=== PATIENT | male | born 1935 | race Caucasian/White ===

== ENCOUNTER 2019-05-29 20:16 | Emergency (ER) | payer OTHER ==
[~2019-05-29] VITALS: Ht 167.6 cm; Wt 60.8 kg
[2019-05-29] MEDS ORDERED: FENTANYL PF 100MCG/2ML AMPUL IV ONE ×3 (20:30→23:30)
[2019-05-29] MEDS ORDERED: ONDANSETRON HCL/PF - ER 4 MG/2 ML VIAL IV ONE (20:30)
--- NOTE | 2019-05-29 20:30 | NUR ---
[facility] C/O ABDOMINAL PAIN X FEW HRS. DENIES N/V. 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
[2019-05-29] MEDS ORDERED: FENTANYL PF 100MCG/2ML AMPUL ONE ×3 (20:33→23:15)
[2019-05-29] MEDS ORDERED: ONDANSETRON HCL/PF 4 MG/2 ML VIAL ONE (20:33)
--- NOTE | 2019-05-29 20:34 | NUR ---
PICKED UP FOR CT
[2019-05-29 20:49] LABS: BASOPHILS % (AUTO) 0.4 % (0.0-2.0); EOSINOPHILS % (AUTO) 0.8 % (0.0-6.0); HEMATOCRIT 32 % (39-51); HEMOGLOBIN 9.9 g/dL (13.5-17.5); LYMPHOCYTES # (AUTO) 0.4 /CMM (0.8-4.8); LYMPHOCYTES % (AUTO) 4.6 % (20.0-44.0); MEAN CORPUSCULAR HGB CONC 31 g/dl (31.0-36.0); MEAN CORPUSCULAR VOLUME 75 fL (80-96); MONOCYTES # (AUTO) 0.5 /CMM (0.1-1.30); MONOCYTES % (AUTO) 6.6 % (2.0-12.0); NEUTROPHILS # (AUTO) 7.2 /CMM (1.8-8.9); NEUTROPHILS % (AUTO) 87.6 % (43.0-81.0); PLATELET COUNT (AUTO) 193 /CMM (150-450); RED BLOOD CELL COUNT(AUTO) 4.23 MIL/uL (4.5-6.0); WHITE BLOOD COUNT (AUTO) 8.2 K/uL (4.3-11.0)
[2019-05-29 20:59] LABS: CALCIUM, SERUM 9.2 mg/dL (8.5-10.1); CARBON DIOXIDE 31 mmol/L (21-32); CHLORIDE 105 mmol/L (98-107); CREATININE 2.5 mg/dL (0.6-1.3); GLUCOSE 97 mg/dL (74-106); POTASSIUM 3.7 mmol/L (3.5-5.1); SODIUM SERUM 145 mmol/L (136-145); UREA NITROGEN, BLOOD 56 mg/dL (7-18)
[2019-05-29 21:04] LABS: ALANINE AMINOTRANSFERASE 20 U/L (12-78); ALKALINE PHOSPHATASE 96 U/L (46-116); ASPARTATE AMINOTRANSFERASE 17 U/L (15-37); BILIRUBIN,DIRECT 0.3 mg/dL (0.0-0.2); BILIRUBIN,TOTAL 0.8 mg/dL (0.2-1.0); LIPASE 358 U/L (73-393); TOTAL PROTEIN, SERUM 7.5 g/dL (6.4-8.2)
[2019-05-29 21:10] LABS: ALBUMIN 3.4 g/dL (3.4-5.0)
--- NOTE | 2019-05-29 21:39 | NUR ---
CALLED [facility] TO INITIATE TRANSFER. AWAITING TO DR PETERS
[2019-05-29] MEDS ORDERED: MORPHINE SULFATE INJ 4 MG/ML DISP.SYRIN ONE (23:43)
[2019-05-30] MEDS ORDERED: MORPHINE SULFATE INJ 2 MG/ML DISP.SYRIN IV ONE
--- NOTE | 2019-05-30 02:40 | NUR ---
Mac hernández in ED - 05/30/19 at 0245 by JAYLA TRANSFER INFO RECEIVED FROM [facility]. ACCEPTING [facility] # 2012-A PHONE # FOR REPORT [facility] ETA [phone]
--- NOTE | 2019-05-30 02:40 | NUR ---
TRANSFER INFO RECEIVED FROM [facility]. PT WILL BE GOING TO [facility] ACCEPTING [facility] # 8449-A PHONE # FOR REPORT [facility] ETA [phone]
--- NOTE | 2019-05-30 02:47 | NUR ---
, maribell [phone]
--- NOTE | 2019-05-30 03:07 | NUR ---
report given to ramon and his charge nurse at [facility].
--- NOTE | 2019-05-30 03:09 | NUR ---
called filemon and made him aware of the transpo
--- NOTE | 2019-05-30 03:44 | NUR ---
pt was picked up by [facility]. report given to IVANA Schaffer. pt stable w/ stable VS. no c/o pain or discomfort . all belongings picked up by .
[2019-05-30 03:47] VITALS: BP 113/80
== END 2019-05-30 03:49 | disposition short-term general hospital (02) ==
LOC: ER 20:17
DX: J90 Pleural effusion, not elsewhere classified (principal); I71.4 Abdominal aortic aneurysm, without rupture; I12.9 Hypertensive chronic kidney disease with stage 1 through stage 4 chronic kidney disease, or unspecified chronic kidney disease; N18.9 Chronic kidney disease, unspecified; D63.1 Anemia in chronic kidney disease; I48.91 Unspecified atrial fibrillation; Z98.890 Other specified postprocedural states; Z60.2 Problems related to living alone; Z85.850 Personal history of malignant neoplasm of thyroid
CPT/HCPCS: 36415; 71045; 74176; 80048; 80076; 83690; 84484; 85025; 85730; 96374; 96375 ×2; 96376; 99285; J2270; J2405; J3010 ×3

== ENCOUNTER 2019-07-04 11:39 | Emergency (ER) | payer OTHER ==
[~2019-07-04] VITALS: Ht 167.6 cm; Wt 53.5 kg
--- NOTE | 2019-07-04 11:40 | NUR ---
[id number] HOME C/O ABDOMINAL PAIN X 4 HOURS. 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 TO ER BED 5, HOOKED TO SWATCH CUTTER, CHANGED TO HOSP GOWN, WARM BLANKET PROVIDED. DR FOLEY AT BEDSIDE.
--- NOTE | 2019-07-04 11:56 | NUR ---
CALLED [facility] FOR FAX OF RECORDS AND POLST FORM.
[2019-07-04] MEDS ORDERED: HYDROMORPHONE INJ 2 MG/ML DISP.SYRIN IV ONE (12:00)
[2019-07-04] MEDS ORDERED: ONDANSETRON HCL/PF 4 MG/2 ML VIAL IVP ONE (12:00)
[2019-07-04] MEDS ORDERED: ONDANSETRON HCL/PF 4 MG/2 ML VIAL ONE (12:02)
[2019-07-04] MEDS ORDERED: HYDROMORPHONE 1 MG/1 ML DISP.SYRIN ONE (12:02)
[2019-07-04 12:10] LABS: BASOPHILS % (AUTO) 0.8 % (0.0-2.0); EOSINOPHILS % (AUTO) 0.9 % (0.0-6.0); HEMATOCRIT 34 % (39-51); HEMOGLOBIN 10.5 g/dL (13.5-17.5); LYMPHOCYTES # (AUTO) 0.4 /CMM (0.8-4.8); LYMPHOCYTES % (AUTO) 7.7 % (20.0-44.0); MEAN CORPUSCULAR HGB CONC 31 g/dl (31.0-36.0); MEAN CORPUSCULAR VOLUME 76 fL (80-96); MONOCYTES # (AUTO) 0.3 /CMM (0.1-1.30); MONOCYTES % (AUTO) 6.1 % (2.0-12.0); NEUTROPHILS # (AUTO) 4.8 /CMM (1.8-8.9); NEUTROPHILS % (AUTO) 84.5 % (43.0-81.0); PLATELET COUNT (AUTO) 155 /CMM (150-450); RED BLOOD CELL COUNT(AUTO) 4.45 MIL/uL (4.5-6.0); WHITE BLOOD COUNT (AUTO) 5.7 K/uL (4.3-11.0)
[2019-07-04 12:16] LABS: CALCIUM, SERUM 9.2 mg/dL (8.5-10.1); CARBON DIOXIDE 29 mmol/L (21-32); CHLORIDE 106 mmol/L (98-107); CREATININE 2.2 mg/dL (0.6-1.3); GLUCOSE 107 mg/dL (74-106); POTASSIUM 3.9 mmol/L (3.5-5.1); SODIUM SERUM 144 mmol/L (136-145); UREA NITROGEN, BLOOD 62 mg/dL (7-18)
[2019-07-04 12:27] LABS: ALANINE AMINOTRANSFERASE 10 U/L (12-78); ALBUMIN 3.1 g/dL (3.4-5.0); ALKALINE PHOSPHATASE 103 U/L (46-116); ASPARTATE AMINOTRANSFERASE 12 U/L (15-37); BILIRUBIN,DIRECT 0.3 mg/dL (0.0-0.2); TOTAL PROTEIN, SERUM 7.1 g/dL (6.4-8.2)
[2019-07-04] MEDS ORDERED: IV NS 0.9% 500 ML BAG IV ONE (13:00)
--- NOTE | 2019-07-04 13:03 | NUR ---
[facility].
--- NOTE | 2019-07-04 14:56 | NUR ---
[facility]ED [facility] FOR [facility]. STILL WAITING FOR HOSPICE NURSE AT [facility] TO CALL BACK. UNKNOWN ETA.
--- NOTE | 2019-07-04 15:16 | NUR ---
[facility] CALLED. LEFT CALL BACK NUMBER [phone].
--- NOTE | 2019-07-04 15:47 | NUR ---
[facility]AN [facility]EL[facility]. ETA FOR AMBULANCE IS [phone].
--- NOTE | 2019-07-04 16:12 | NUR ---
spoke to marquez ([facility]). aware that patient will be picked up by ambulance and eta of patient.
--- NOTE | 2019-07-04 16:28 | NUR ---
IV removed. Catheter intact and site benign. Pressure and 4x4 applied to site. No bleeding noted.
--- NOTE | 2019-07-04 16:31 | NUR ---
Patient discharged to home in stable condition. Picked up by [facility]. Written and verbal after care instructions given. Patient and verbalizes understanding of instruction.
[2019-07-04 16:34] VITALS: BP 160/106
== END 2019-07-04 16:34 | disposition home or self-care (01) ==
LOC: ER 12:00
DX: R10.84 Generalized abdominal pain (principal); G89.29 Other chronic pain; M54.9 Dorsalgia, unspecified; I71.9 Aortic aneurysm of unspecified site, without rupture; Z66 Do not resuscitate; I48.91 Unspecified atrial fibrillation; I13.0 Hypertensive heart and chronic kidney disease with heart failure and stage 1 through stage 4 chronic kidney disease, or unspecified chronic kidney disease; N18.9 Chronic kidney disease, unspecified; I50.9 Heart failure, unspecified; Z98.890 Other specified postprocedural states; Z85.850 Personal history of malignant neoplasm of thyroid; Z60.2 Problems related to living alone
CPT/HCPCS: 36415; 71045; 80048; 80076; 85025; 85730; 93005; 96374; 96375; 99285; J1170; J2405; J7040